=== PATIENT | female | born 1970 | race Caucasian/White ===

== ENCOUNTER 2021-01-24 18:48 | Emergency (ER) | payer OTHER ==
[~2021-01-24] VITALS: Ht 157.5 cm; Wt 70.8 kg
[2021-01-24 20:23] LABS: HEMATOCRIT 37.2 % (37.0-47.0); HEMOGLOBIN 12.1 gm/dL (12.0-15.0); MCH 26.4 pg (26.0-34.0); MCHC 32.5 g/dL (28.0-37.0); MCV 81.2 fL (80.0-100.0); PLATELET COUNT 244 thou/uL (150-400); RBC 4.58 mil/uL (4.20-5.00); RDW 21.4 % (10.5-14.5); WBC 6.6 thou/uL (4.0-11.0)
[2021-01-24 20:49] LABS: INR 0.96; PROTIME 10.5 Seconds (10.5-12.1)
[2021-01-24 21:30] LABS: CALCIUM 8.3 mg/dL (8.5-10.1); CREATININE 0.7 mg/dL (0.6-1.0)
[2021-01-24 21:33] LABS: POTASSIUM 3.4 mmol/L (3.5-5.1)
[2021-01-24 21:36] LABS: ABSOLUTE NEUTROPHILS 3.4 thou/uL (1.4-8.2); ALBUMIN 3.1 g/dL (3.4-5.0); TOTAL BILIRUBIN 0.5 mg/dL (0.2-1.0); TOTAL PROTEIN 6.6 g/dL (6.4-8.2)
[2021-01-24 21:38] LABS: ANISOCYTOSIS 2+; MICROCYTES 1+
[2021-01-24 21:56] VITALS: BP 142/75
== END 2021-01-24 22:04 | disposition home or self-care (01) ==
LOC: ER 18:48
PROVIDERS: Emergency Medicine
DX: N93.8 Other specified abnormal uterine and vaginal bleeding (principal); N80.0 Endometriosis of uterus; Z88.0 Allergy status to penicillin